=== PATIENT | male | born 1965 | race African-American/Black ===

== ENCOUNTER 2017-10-21 01:55 | Emergency (ER) | payer SELFPAY ==
[2017-10-21] MEDS ORDERED: Nitroglycerin 0.4 MG TAB (25 Tab Bottle) ONE (02:15)
[2017-10-21 02:49] LABS: Hemoglobin 14.9 g/dL (14.0-18.0); Manual Diff?? NO; Mean Corpuscular HGB CONC 34.7 g/dL (32.0-36.0); Mean Corpuscular Hemoglobin 26.5 pg (27.0-31.0); Mean Corpuscular Volume 76.5 fL (80.0-94.0); Mean Platelet Volume 6.4 fL (7.4-10.4); Platelet Count 279 thou/uL (130-400); RBC Distribution Width 12.6 % (11.5-14.5); White Blood Cell (WBC) Count 14.8 thou/uL (4.8-10.8)
[2017-10-21 02:50] LABS: #Basophils 0.3 thou/uL (0.0-0.2); #Monocytes 0.6 thou/uL (0.11-0.59); #Neutrophils 12.2 thou/uL (1.40-6.50); %Basophils 1.8 % (0.0-1.0); %Eosinophils 0.1 % (0.0-10.0); %Lymphocytes 12.2 % (21.0-51.0); %Monocytes 3.9 % (0.0-10.0); MDiff Complete? YES
[2017-10-21 02:58] LABS: ALT (SGPT) 35 U/L (8-55); AST (SGOT) 20 U/L (5-34); Albumin 4.6 g/dL (3.5-5.0); Alkaline Phosphatase 79 U/L (40-150); Anion Gap 18 mmol/L (10-20); BUN (Urea Nitrogen) 33 mg/dL (8.9-20.6); Bilirubin, Total 0.4 mg/dL (0.2-1.2); Calc. Creatinine Clearance 0 mL/min (70-130); Calcium 10.7 mg/dL (7.8-10.44); Carbon Dioxide 18 mmol/L (22-29); Chloride 106 mmol/L (98-107); Estimated GFR-MDRD 30; Globulin 4.4 g/dL (2.4-3.5); Glucose 192 mg/dL (70-105); Potassium 4.2 mmol/L (3.5-5.1); Sodium 138 mmol/L (136-145)
[2017-10-21 02:59] LABS: CKMB 3.4 ng/mL (0-6.6); Troponin I 0.074 ng/mL (< 0.028)
--- NOTE | 2017-10-21 07:02 | RAD ---
PORTABLE CHEST: DATE: 10/21/17. FINDINGS: An AP portable film at 0156 shows a normal-sized heart and clear lungs. No infiltrate or effusion wa s seen. There is no vascular congestion or edema. The trachea is midline. IMPRESSION: No acute thoracic finding. POS: HOME
[2017-10-21 09:00] LABS: #Lymphocytes 1.8 thou/uL (1.20-3.40)
== END 2017-10-21 04:19 | disposition left against medical advice (07) ==
LOC: BURERS 01:55
DX: R07.2 Precordial pain (principal); J45.909 Unspecified asthma, uncomplicated
CPT/HCPCS: 71045; 80053; 82553; 83880; 84484; 85025; 85379; 93005; 96360

== ENCOUNTER 2020-08-06 00:22 | Emergency (ER) | payer SELFPAY ==
[2020-08-06] MEDS ORDERED: Dexamethasone 4 mg/ml Vial ONE (00:42)
== END 2020-08-06 01:09 | disposition home or self-care (01) ==
LOC: BURERS 00:22
DX: J45.901 Unspecified asthma with (acute) exacerbation (principal)
CPT/HCPCS: 94640; J1100; J7620

== ENCOUNTER 2020-08-08 23:55 | Emergency (ER) | payer SELFPAY ==
[2020-08-09] MEDS ORDERED: predniSONE 20 MG TAB ONE (00:09)
[2020-08-09] MEDS ORDERED: Albuterol 200 PUFF (6.7GM INHALER) ONE (00:32)
== END 2020-08-09 00:39 | disposition home or self-care (01) ==
LOC: BURERS 23:55
DX: J45.901 Unspecified asthma with (acute) exacerbation (principal)
CPT/HCPCS: J7512; J7620